=== PATIENT | male | born 1990 | race Caucasian/White ===

== ENCOUNTER 2019-04-07 14:40 | Emergency (ER) | payer BC ==
[~2019-04-07] VITALS: Ht 180.3 cm; Wt 86.2 kg
[~2019-04-07 14:40] MED LIST: Bactrim Ds Tab1 EACH PO; Bactroban22 GM TOP; Cleocin HCl300 MG PO
== END 2019-04-07 16:07 | disposition home or self-care (01) ==
LOC: ER 14:40
DX: M54.5 Low back pain (principal); F17.210 Nicotine dependence, cigarettes, uncomplicated
CPT/HCPCS: 72100; 96372; 99283-25; A9270-GY; J1885